=== PATIENT | female | born 1985 | race Caucasian/White ===

== ENCOUNTER 2021-05-06 19:46 | Emergency (ER) | payer BC, OTHER ==
[2021-05-06] MEDS ORDERED: ZOFRAN ODT 4 MG4 MG SL (21:15)
== END 2021-05-06 23:25 | disposition home or self-care (01) ==
LOC: ER1 19:46
DX: Z23 Encounter for immunization (principal); U07.1 COVID-19
CPT/HCPCS: 0240U; 99284; M0243

== ENCOUNTER → 2022-04-13 | Outpatient (CLI) | payer BC, OTHER ==
[~2022-04-13] MED LIST: ZOFRAN ODT 4 MG4 MG SL
[2022-04-13 05:23] LABS: HEMOGLOBIN 12.5 gm/dl (12.3-15.3); RED BLOOD COUNT 4.17 M/UL (4.00-5.10); WHITE BLOOD COUNT 8.1 K/UL (4.5-11.0)
[2022-04-14 11:15] LABS: CREATININE, URINE 153.1 mg/dL (Not Estab.)
== END ==
LOC: LAB 03:24
PROVIDERS: Nurse Practitioner Family
DX: Z13.1 Encounter for screening for diabetes mellitus (principal); Z13.220 Encounter for screening for lipoid disorders; R53.83 Other fatigue; R31.9 Hematuria, unspecified; R82.4 Acetonuria; F41.9 Anxiety disorder, unspecified; D50.9 Iron deficiency anemia, unspecified; E53.8 Deficiency of other specified B group vitamins
CPT/HCPCS: 80061; 81001; 82043; 82570; 82607; 82728; 83036; 83540; 83550; 84439; 84443; 85025; 87086